=== PATIENT | male | born 1955 | race Caucasian/White ===

== ENCOUNTER 2025-07-20 17:51 | Emergency (ER) | payer MEDICARE, OTHER, SELFPAY ==
--- OUTSIDE RECORDS SUMMARY | 2025-07-12 18:00 | XMS_ITS | Continuity of Care Document ---
Author Organization [facility] Address [address] [place] [address] Phone Care Team Providers Care Edge Stainer Machine Name Role Phone Delmer NEWMAN, [facility], [facility] Unavailable Unavailab le Allergies, Adverse Reactions, Alerts Substance Reaction Status Criticality LISDEXAMFETAMINE DIMESYLATE Active No Information lisinopril Facial swelling(moderate) Active No Information Medications Medication Instructions Dosage Effective Dates (start - stop) Status Comments XARELTO 15 MG TABLET TAKE 1 TABLET BY [place] [facility] EVERY DAY AT NIGHT - Active midodrine 10 mg tablet - Act zoltan allopurinol 300 mg tablet TAKE 1 TABLET BY MOUTH EVERY DAY AT 9AM - Active bumetanide 1 mg tablet TAKE 1 TABLET BY MOUTH EVERY DAY - Active citalopram 40 mg tablet - Active glipizide ER 10 mg tablet, extended release 24 hr - Active losartan 25 mg tablet 1 TABLET BY MOUTH EVERY DAY - Active trazodone 50 mg tablet TAKE 1 TABLET BY MOUTH EVERY EVENING - Active buspirone 7.5 mg tablet take 1 tablet by oral route 2 times every day 7.5 MG - Active quetiapine 50 mg tablet - Active calcitriol 0.25 mcg capsule - Active atorvastatin 80 mg tablet - Active isosorbide mononitrate ER 30 mg tablet,extended release 24 hr - Active Jardiance 10 mg tablet - Act zoltan tamsulosin 0.4 mg capsule - Active buspirone 7.5 mg tablet - Active hydralazine 50 mg tablet take 1 tablet by oral route 2 times every day with food 50 MG - Active albuterol sulfate HFA 90 mcg/actuation aerosol inhaler - Active Januvia 100 mg tablet TAKE 1 TABLET BY M OUTH EVERY MORNING BEFORE MEALS - Active hydralazine 50 mg tablet TAKE 1 TABLET BY MOUTH EVERY 8 HOURS - Active Procedures Procedure Date ICM DEVICE INTERROGAT REMOTE ICD DEVICE INTERROGAT REMOTE PM/ICD REMOTE TECH SERV ICM DEVICE INTERROGAT REMOTE ICM DEVICE INTERROGAT REMOTE Complex e/m visit add on OFFICE/OUTPATIENT VISIT, EST SUBSEQUENT HOSPITAL CARE SUBSEQUENT HOSPITAL CARE SUBSEQUENT HOSPITAL CARE SUBSEQUENT HOSPITAL CARE INITIAL HOSPITAL CARE ICD DEVICE INTERROGAT REMOTE PM/ICD REMOTE TECH SERV ICM DEVICE INTERROGAT REMOTE Advance Directives Directive Yes / No Effective Date File Name No Information Encounters Encounter Description Practice Location Reason(s) For Visit Diagnoses Date Provider Providers Copied on Encounter [facility], [address] [place] [address], [id number] , tel: [phone] [facility] [place] Presence of automatic (implantable) cardiac defibrillator Delmer Albrecht. [address] [place], [place], [id number], . tel:[phone] Referring Provider: [address], [place], [address]. tel:[phone] [facility], [address] [place] [address], [id number] , tel: [phone] [facility] Presence of automatic (implantable) cardiac defibrillator 5 Delmerjeancarlos Albrecht. [address] [place], [place], [id number], . tel:[phone] Referring Provider: Ambrocio Delmer, [address], [place], [address]. tel:[phone] [facility], [address] [place] [address], [id number] , tel: [phone] [facility] No Information 5 Tico Damon. [address], [place], [place], [id number], . tel:[phone] [facility], [address] [place] [address], [id number] , tel: [phone] [facility] Presence of automatic (implantable) cardiac defibrillator 5 Delmer Albrecht. [address], [place], [id number], . tel:[phone] Referring Provider: Ambrocio Dowell, [address], [place], [address]. tel:[phone] [facility], [address] [place] [address], [id number] , tel: [phone] [facility] Presence of automatic (implantable) cardiac defibrillator 5 Delmer Albrecht. [address] [place], [place], [id number], . tel:[phone] Referring Provider: [address], [place], [address]. tel:[phone] ing Provider: Ambrocio Dowell, [address], [place], [address]. tel:[phone] OFFICE/OUTPA TIENT VISIT, EST [facility], [address] [place] [address], [id number] , tel: [phone] [facility] FOLLOW UP (chief complaint) Body mass index [BMI] 28.0-28.9, adultNonrheumatic aortic insufficiencyCHFA F - Paroxysmal atrial fibrillationDiabe ajay mellitusCAD Sep- 5 Delmersage Albrecht. [address], [place], [place], [id number], [place]. tel:[phone] Referring Provider: Amador Mclain, [address] [facility] [address], [place], [address]. tel:[phone] [facility], [address] [place] [address], [id number] , [place] tel: [phone] [facility] [place] No Information 5 [facility] Ambrocio. [address], [place], [place], [id number], [place]. tel:[phone] SUBSEQUENT HOSPITAL CARE [facility], [address] [place] [address], [id number] , [place] tel: [phone] [facility] IP Essential (primary) hypertensionHyper lipidemia, unspecifiedAbnorm al electrocardiogram [ECG] [EKG]Shortness of breathCardiomyopa thy, unspecified 5 [facility] Ambrocio. [address] [place], [place], [id number], [place]. tel:[phone] Referring Provider: Ambrocio Dowell, [address], [place], [address]. tel:[phone] SUBSEQUENT HOSPITAL CARE [facility], [address] [place] [address], [id number] , [place] tel: [phone] [facility] IP Essential (primary) hypertensionHyper lipidemia, unspecifiedShortn ess of breathAthscl heart disease of [place] coronary artery w/o ang pctrsCardiomyopat hy, unspecifiedOther hypotension 5 [facility] Migd[facility]. [address], [place], [place], [id number], [place]. tel:[phone] Referring Provider: Ambrocio Dowell, [facility] [address], [place], [address]. [phone] SUBSEQUENT HOSPITAL CARE [facility], [address] [place] [address], [id number] , tel: [phone] [facility] IP Cardiomyopathy, unspecifiedShortn ess of breathAbnormal electrocardiogram [ECG] [EKG]Athscl heart disease of [place] coronary artery w/o ang pctrsHyperlipidem ia, unspecifiedEssent ial (primary) hypertension 5 Shamim Jermaine. [facility] [address], [place], [place], [id number], . tel:[phone] Referring Provider: Ambrocio Dowell, [facility] [address], [place], [address]. tel:[phone] SUBSEQUENT HOSPITAL CARE [facility], [address] [place] [address], [id number] , tel: [phone] [facility] IP Essential (primary) hypertensionHyper lipidemia, unspecifiedAbnorm al electrocardiogram [ECG] [EKG]Shortness of breathCardiomyopa thy, unspecified 5 Yoon Raines. [facility] [address], [place], [place], [id number], . tel:[phone] Referring Provider: Ambrocio Dowell, [facility] [address], [place], [address]. tel:[phone] INITIAL HOSPITAL CARE [facility], [address] [place] [address], [id number] , tel: [phone] [facility] IP Essential (primary) hypertensionHyper lipidemia, unspecifiedAthscl heart disease of [place] coronary artery w/o ang pctrsAbnormal electrocardiogram [ECG] [EKG]Shortness of breathCardiomyopa thy, unspecified 5 Jai Connors. [address] [place], [place], [address] [place] [address]. tel:[phone] Referring Provider: Ambrocio Dowell, [address], [place], [address]. tel:[phone] [facility], [address] [place] [address], [address] [place] [address] tel: [phone] [facility] Presence of automatic (implantable) cardiac defibrillator 5 Delmer Albrecht. [address] [place], [address] [place] [address]. tel:[phone] Referring Provider: Ambrocio Dowell, [facility] [address], [place], [place], [address] [place] [address]. tel:[phone] ing Provider: Ambrocio Dowell, [place], [address]. tel:[phone] [facility], [address] [place] [address], [address] [place] [address] tel: [phone] [facility] [place] Presence of automatic (implantable) cardiac defibrillator 5 Delmer Albrehct. [address], [place], [address] [place] [address], . tel:[phone] Referring Provider: Ambrocio Dowell, [place], [address]. tel:[phone] ing Provider: Ambrocio Dowell, [facility] [place], [address]. tel:[phone] [facility], [address] [place] [address], [address] [place] [address] tel: [phone] [facility] [place] No Information 5 Delmer Albrecht. [address], [place], [address] [place] [address], . tel:[phone] Family History Family Member Type Diagnosis Age At Onset Mother Problem (finding) Heart disease Brother Problem (finding) Heart disease Father Problem (finding) Stroke Payers Payer name Insurance type Covered libertarian ID Asael childs(s) [facility] [id number] PPO C [id number] [facility] [id number] Social History Type Description Quantity Date Captured Comments Sex Male Smoking Status No Information Chief Complaint And Reason For Visit No Information Reason For Referral Reason For Referral No Information Plan Of Treatment Date Type Action Status Goal Dietary management education , guidance, and counseling completed History Of Present Illness Encounter Date Complaint History Of Prese nt Illness FOLLOW UP Functional Status Date Functional Assessmen t No Information Instructions Date Instruction Additional Infor mation Dietary management e ducation, guidance, and counseling Related to Body mass index [BMI] 28.0-28.9, adult Assessments Type Assessment Date No Information Patient Care Teams Name Effective Dates (start - stop) Status Members No Information
[2025-07-20] VITALS (7 sets, daily range): BP systolic 104–142; BP diastolic 50–100; PULSE 82–98; RESP 12–17; TEMP 36.7; O2SAT 93–100
--- NOTE | ~2025-07-20 | CT_ITS ---
EXAMINATION: CTA pelvis DATE: 07/20/2025 20:37 INDICATION: Right hip pain. Hematoma to the right gluteus maximize. TECHNIQUE: Computed tomographic angiography (CTA) of the chest was performed without and with 100 mL Omnipaque-350 intravenous contrast. Additional 3D reconstructions utilizing coronal maximum intensity projection (MIP) were performed. Automated exposure control and iterative reconstruction technique were employed. The dose-length product was 385.17 mGy-cm. COMPARISON: None FINDINGS: Large intramuscular hematoma in the right gluteus stefania muscle which begins at the level of the cephalad aspect of the right acetabulum which extends 11 cm craniocaudally to the level of the ischial tuberosity. Hematoma measures 13.4 x 5.7 cm in maximal transaxial dimensions. There is a small focus of active contrast extravasation at the anteroinferior aspect of the hematoma best appreciated on series 3, images 85 & 86, coronal series 601, images 83-85 and sagittal series 602, images 16 & 17. The musculature of the pelvis and visualized proximal thighs is otherwise symmetric and normal in appearance. Bladder and visualized portions of bowels are unremarkable. Mild prostatomegaly measuring 4.4 x 3.7 cm. Small fat-containing left inguinal hernia. No free fluid in the pelvis. No pathologically enlarged pelvic or inguinal lymphadenopathy. Scattered atherosclerotic disease throughout the arteries of the pelvis and proximal thighs with no hemodynamically significant stenosis, aneurysm or d issection. 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 Suggestion of possible old healed fracture extending transversely across the sacrum at the level of S4-S5. IMPRESSION: 1. Large right gluteus stefania intramuscular hematoma measuring 13.4 x 11.0 x 5.7 cm with small focus of active contrast extravasation. 2. Small fat-containing left inguinal hernia. 3. L5 spondylolysis with bilateral pars interarticularis defects, 6 mm anterolisthesis on S1 and severe lumbosacral spondylosis. 4. Prostatomegaly. Reviewed, dictated and finalized at location A. NG ASSISTANT IMPRESSION: 1. Large right gluteus stefania intramuscular hematoma measuring 13.4 x 11.0 x 5 .7 cm with small focus of active contrast extravasation. 2. Small fat-containing left inguinal hernia. 3. L5 spondylolysis with bilateral pars interarticularis defects, 6 mm anteroli sthesis on S1 and severe lumbosacral spondylosis. 4. Prostatomegaly.
--- NOTE | 2025-07-20 18:33 | ED_ITS ---
HPI - Extremity Injury (Lower) General Chief Complaint: Extremity Injury, Lower <LATANYA Chambers Last Filed: 07/20/25 23:17> Stated Complaint: Fall, Right Hip pain <LATANYA Chambers Last Filed: 07/20/25 23:17> Time Seen by Provider: 07/20/25 17:54 <LATANYA Chambers Last Filed: 07/20/25 23:17> Source: patient <LATANYA Chambers Last Filed: 07/20/25 23:17> Mode of arrival: EMS <LATANYA Chambers Last Filed: 07/20/25 23:17> Limitations: no limitations <LATANYA Chambers Last Filed: 07/20/25 23:17> History of Present Illness HPI Narrative: Patient is a 69-year-old male who presents the ED via EMS with report of a fall. Patient reports he tripped and fell earlier this afternoon. Fell onto concrete, landed on his R hip. Denied HI/LOC. Was able to get up from the ground by himself but c/o persistent pain in his R hip into the evening at which point EMS was called. Was able to ambulate. Denies numbness. Denies any other areas of pain. Denies neck or back pain. Patient is on xarelto. Hx AFIB <LAATNYA Chambers Last Filed: 07/20/25 23:17> Related Data Allergies/Adverse Reactions: Allergies Allergy/AdvReac Type Severity Reaction Status Date / Time metoprolol (From Lopressor) Allergy Severe Swelling Verified 07/20/25 17:58 of Lip/Tongue/Throat <LATANYA Chambers Last Filed: 07/20/25 23:17> Review of Systems 2 Review of Systems: All systems reviewed & are unremarkable except as noted in HPI. <LATANYA Chambers Last Filed: 07/20/25 23:17> All systems reviewed & are unremarkable except as noted in HPI and below < LATANYA Chambers Last Filed: 07/20/25 23:17> Exam 2 Narrative: GENERAL: Elderly but well appearing, well-nourished, non-toxic, in no acute distress. HEAD: Normocephalic, atraumatic. RESPIRATORY: Airway patent, respirations nonlabored. Clear to auscultation bilaterally, no rales, rhonchi, wheezing. CARDIOVASCULAR: Regular rate and rhythm without murmurs, rubs, or gallops. ABDOMINAL: Soft, nontender, nondistended. Normoactive BS. MUSCULOSKELETAL: Moves all extremities. Large amount of swelling/bruising/hematoma formation to right gluteal region. Diffuse bruising extending into proximal thigh, up to gluteal cleft. Focal tenderness to palpation. Sensation intact throughout right lower extremity. Peripheral pulses intact. No tenderness palpation throughout lumbar midline spine. SKIN: Warm, dry, normal color. NEURO: A&O X3. Speech clear. Cranial nerves II-XII grossly intact. Steady gait. No ataxic movements. PSYCHIATRIC: Appropriate mood and affect. Normal interaction. <LATANYA Chambers Last Filed: 07/20/25 23:17> Course FORESTER [employer]URE/PA Physician Supervision This visit was performed by both a physician and an Advanced Practice Provider. I performed all aspects of the Medical Decision Making as documented. <Antony Masters MD - Last Filed: 07/21/25 03:19> Vital Signs Vital signs: Vital Signs Temperature 36.7 C 07/20/25 17:53 Pulse Rate 90 07/20/25 17:53 Respiratory Rate 16 07/20/25 17:53 Blood Pressure 104/71 07/20/25 17:53 Pulse Oximetry 100 07/20/25 17:53 Oxygen Delivery Room Air 07/20/25 17:53 Temperature 36.7 C 07/20/25 17:53 Pulse Rate 87 07/21/25 01:52 Respiratory Rate 12 07/21/25 01:52 Blood Pressure 111/54 L 07/21/25 01:52 Pulse Oximetry 97 07/21/25 01:52 Oxygen Delivery Room Air 07/20/25 17:53 <Noelle Joshi PA-C - Last Filed: 07/20/25 23:17> Vital Signs Temperature 36.7 C 07/20/25 17:53 Pulse Rate 90 07/20/25 17:53 Respiratory Rate 16 07/20/25 17:53 Blood Pressure 104/71 07/20/25 17:53 Pulse Oximetry 100 07/20/25 17:53 Oxygen Delivery Room Air 07/20/25 17:53 Temperature 36.7 C 07/20/25 17:53 Pulse Rate 87 07/21/25 01:52 Respiratory Rate 12 07/21/25 01:52 Blood Pressure 111/54 L 07/21/25 01:52 Pulse Oximetry 97 07/21/25 01:52 Oxygen Delivery Room Air 07/20/25 17:53 <Antony Masters MD - Last Filed: 07/21/25 03:19> MDM - Extremity Injury (Lower) MDM Narrative Medical decision making narrative: Patient presented to ED status post ground level mechanical fall today, pain to right posterior hip/glute. Vital signs are stable arrival. Patient in no acute distress. Exam notable for large right-sided gluteal hematoma with diffuse bruising. Patient is on anticoagulation. Will obtain imaging to rule out fracture or active extravasation of hematoma. Laboratory studies with hemoglobin 9.6. No records to compare to. CMP with creatinine 1.8. No records to compare to. CTA pelvis was obtained and showing right gluteal intramuscular hematoma with focus of active arterial hemorrhage. No fracture / dislocation. Given patient is currently on anticoagulation with actively bleeding hematoma, may need IR/vascular management. Will require transfer. Repeat H&H approx 3 hours later 9.6 to 9.0. Patient remaining hemodynamically stable at this time. BP stable. Discussed case with Dr. Rose, EDP @ [facility], accepted patient for transfer. Patient is in agreement with plan and need for transfer. <Noelle Joshi PA-C - Last Filed: 07/20/25 23:17> Medical Records Attestation: I reviewed the patient's medical records. <Noelle Joshi PA-C - Last Filed: 07/20/25 23:17> Lab Data Attestation: I reviewed the patient's lab results. <Noelle Joshi PA-C - Last Filed: 07/20/25 23:17> Result diagrams: 07/20/25 22:29 07/20/25 19:26 <Noelle Joshi PA-C - Last Filed: 07/20/25 23:17> Labs: Lab Results 07/20/25 07/20/25 07/20/25 Range/Units 19:26 22:29 22:41 WBC 10.2 H (4.5-10.0) K/mm3 RBC 3.29 L (4.6-6.20) M/mm3 Hgb 9.6 L 9.0 L (14.0-18.0) g/dL Hct 29.9 L 28.2 L (42.0-52.0) % MCV 90.9 (80-100) fl MCH 29.2 (26-34) pg MCHC 32.1 (32-36) g/dl RDW 16.8 H (11.5-14.5) % Plt Count 211 (150-375) k/mm3 MPV 9.9 (7.4-10.4) fl Immature Gran % (Auto) 0.6 H (0-0.5) % Neut % (Auto) 80.9 H (45.5-73.1) % Lymph % (Auto) 8.5 L (18.3-44.2) % [place] % (Auto) 7.0 (2.6-8.5) % Eos % (Auto) 2.5 (0-4.4) % Baso % (Auto) 0.5 (0.2-1.2) % Lymph # (Auto) 0.86 L (0.9-3.2) K/mm3 [place] # (Auto) 0.7 H (0.1-0.6) K/mm3 Eos # (Auto) 0.3 (0-0.3) K/mm3 Baso # (Auto) 0.1 (0.0-0.1) K/mm3 Abs Immat Gran (auto) 0.06 H (0.00-0.031) K/mm3 Absolute Neuts (auto) 8.2 H (1.3-6.7) K/mm3 Absolute Nucleated RBC 0.000 (0.0-0.012) K/mm3 Nucleated RBC % 0.0 (0.0-0.2) % PT 21.3 H (11.1-14.7) Seconds INR 1.9 APTT 33.6 (22.3-36.8) Seconds Sodium 135 L (137-145) mmol/L Potassium 4.8 (3.4-5.0) mmol/L Chloride 105 (98-107) mmol/L Carbon Dioxide 22 (22-30) mmol/L Anion Gap 8 (4-12) mmol/L BUN 76 H (9-20) mg/dL Creatinine 1.80 H (0.7-1.3) mg/dL Estim Creat Clear Calc 32 ml/min Estimated GFR 37 L (59 - ) Glucose 195 H (65-110) mg/dL Calcium 9.8 (8.4-10.2) mg/dL Total Bilirubin 0.5 (0.2-1.3) mg/dL AST 28 (17-59) U/L ALT 29 (6-50) U/L Alkaline Phosphatase 91 (38-126) U/L Total Protein 6.4 (6.3-8.2) g/dL Albumin 3.6 (3.5-5.1) g/dL Blood Type A Negative Antibody Screen Negative <Noelle Joshi PA-C - Last Filed: 07/20/25 23:17> Lab Results 07/20/25 07/20/25 07/20/25 Range/Units 19:26 22:29 22:41 WBC 10.2 H (4.5-10.0) K/mm3 RBC 3.29 L (4.6-6.20) M/mm3 Hgb 9.6 L 9.0 L (14.0-18.0) g/dL Hct 29.9 L 28.2 L (42.0-52.0) % MCV 90.9 (80-100) fl MCH 29.2 (26-34) pg MCHC 32.1 (32-36) g/dl RDW 16.8 H (11.5-14.5) % Plt Count 211 (150-375) k/mm3 MPV 9.9 (7.4-10.4) fl Immature Gran % (Auto) 0.6 H (0-0.5) % Neut % (Auto) 80.9 H (45.5-73.1) % Lymph % (Auto) 8.5 L (18.3-44.2) % [place] % (Auto) 7.0 (2.6-8.5) % Eos % (Auto) 2.5 (0-4.4) % Baso % (Auto) 0.5 (0.2-1.2) % Lymph # (Auto) 0.86 L (0.9-3.2) K/mm3 [place] # (Auto) 0.7 H (0.1-0.6) K/mm3 Eos # (Auto) 0.3 (0-0.3) K/mm3 Baso # (Auto) 0.1 (0.0-0.1) K/mm3 Abs Immat Gran (auto) 0.06 H (0.00-0.031) K/mm3 Absolute Neuts (auto) 8.2 H (1.3-6.7) K/mm3 Absolute Nucleated RBC 0.000 (0.0-0.012) K/mm3 Nucleated RBC % 0.0 (0.0-0.2) % PT 21.3 H (11.1-14.7) Seconds INR 1.9 APTT 33.6 (22.3-36.8) Seconds Sodium 135 L (137-145) mmol/L Potassium 4.8 (3.4-5.0) mmol/L Chloride 105 (98-107) mmol/L Carbon Dioxide 22 (22-30) mmol/L Anion Gap 8 (4-12) mmol/L BUN 76 H (9-20) mg/dL Creatinine 1.80 H (0.7-1.3) mg/dL Estim Creat Clear Calc 32 ml/min Estimated GFR 37 L (59 - ) Glucose 195 H (65-110) mg/dL Calcium 9.8 (8.4-10.2) mg/dL Total Bilirubin 0.5 (0.2-1.3) mg/dL AST 28 (17-59) U/L ALT 29 (6-50) U/L Alkaline Phosphatase 91 (38-126) U/L Total Protein 6.4 (6.3-8.2) g/dL Albumin 3.6 (3.5-5.1) g/dL Blood Type A Negative Antibody Screen Negative <Antony Masters MD - Last Filed: 07/21/25 03:19> Imaging Data Attestation: I personally reviewed and interpreted this imaging study as follows: < Noelle Joshi PA-C - Last Filed: 07/20/25 23:17> Radiologist's impression: STAT RAD CTA pelvis: Impression: Right gluteal intramuscular hematoma with focus of active arterial hemorrhage. No evidence of acute fracture or dislocation. <Noelle Joshi PA-C - Last Filed: 07/20/25 23:17> Critical Care Time Critical Care Time Critical Care Time: Yes <Antony Masters MD - Last Filed: 07/21/25 03:19> Total Critical Care Time: 75 <Antony Masters MD - Last Filed: 07/21/25 03:19> Discharge Plan Discharge Clinical Impression: Extravasation of blood, Chronic anticoagulation Traumatic hematoma of buttock Qualifiers: Encounter type: initial encounter Qualified Code(s): S30.0XXA - Contusion of lower back and pelvis, initial encounter <Noelle Joshi PA-C - Last Filed: 07/20/25 23:17> Patient Disposition: Acute Care Hospital <Noelle Joshi PA-C - Last Filed: 07/20/25 23:17> Condition: Stable <Noelle Joshi PA-C - Last Filed: 07/20/25 23:17> Patient Language: Zimbabwean <Noelle Joshi PA-C - Last Filed: 07/20/25 23:17> Follow-up/Referrals: PHYSICIAN NOT ON STAFF,NONSTAFF [Primary Care Provider] <LATANYA Chambers Last Filed: 07/20/25 23:17>
--- OUTSIDE RECORDS SUMMARY | 2025-07-20 18:50 | XMS_ITS | Encounter Summary ---
Author Organization [facility] Address [address] [place] [address] Phone Care Team Providers Care Wood Cabinetmaker Name Role Phone Amador Mclain Primary Care Provider [phone] Encounter Details Date Type Department Care Team (Late st Contact Info) Description 03/13/2025 Nursing Facility [facility] [address] [place] [address] [phone] Bella Garcia, GUILLE, PATIENT FINANCIAL SERVICES MANAGER [address] [place] [address] Social History Tobacco Use Types Packs/Day Years Used Date Smoking Tobacco: Never Assessed Sex and Gender Information Value Date Recorded Sex Assigned at Not on file Legal Sex Male 7:30 PM CDT Gender Identity Not on file Sexual Orientation Not on file documented as of this encounter Progress Notes * Bella Garcia, GUILLE, PATIENT FINANCIAL SERVICES MANAGER - 03/13/2025 11:59 PM CDT [facility] PROGRESS NOTE Rolando Viera is a 69 y.o. male at [facility] for rehabilitation. Subjective: Interval History: I am seeing this resident for routine follow up encounter. Review of Systems: A 14 point comprehensive review of systems was negative except what is documented in interval history above. Objective: Exam: General: well developed well nourished, alert, oriented and in no acute distress Skin: normal coloration and turgor, no rashes HEENT: normocephalic, atraumatic. Pupils equal, round and reactive to light. Extraocular movements intact. Oronasopharynx pink and moist, no lesion or exudate. Neck: Supple. No JVD, lymphadenopathy thyromegaly or carotid bruits auscultated CVS: RRR, S1/S2 normal, no murmurs, gallops or rubs Chest: clear to auscultation, no wheezes, rales or rhonchi, symmetric air entry and normal respiratory effort Abdominal: soft, nontender, nondistended. Positive Bowel sounds, no organomegaly appreciated Extremities: Rt upper arm Picc line, otherwise, no edema, no clubbing or cyanosis Neuro: alert and orient x 2-3. Moves all extremities well. No neurological deficits noted. Gait nottested Lab Results: none Imaging: none Assessment/Plan: Bacteremia due to the ED. Faecalis with Sepsis Continue to receive IV ampicillin and Rocephin via right upper arm PICC line until 03/24/2025 Generalized weakness with deconditioning Will continue therapy 5 days a week as ordered Diabetes type 2 Blood sugars are currently stable, continue glipizide, Lantus, and sliding scale Hypertension/hyperlipidemia BP currently stable, continue antihypertensives and statin Chronic diastolic heart failure Currently not in exacerbation, continue Bumex, Jardiance, as Anxiety and depression Continue home citalopram, buspirone, trazodone Will consult child psychometrist to help manage medication Right knee pain Has upcoming orthopedic surgery surgery appointment CKD stage IV Follow labs BPH Continue Flomax Chronic atrial fibrillation Currently rate controlled, continue Xarelto and metoprolol VTE Prophylaxis: activity By: Bella Garcia APRN, CNP, 03/14/2025 2:02 AM CDT documented in this encounter Plan of Treatment Not on file documented as of this encounter Visit Diagnoses Not on filedocumented in this encounter Care Teams Wood Cabinetmaker Relationship Specialty [place] [address] [place] [address] PCP - General Family Medicine 04/08/25 documented as of this encounter
--- OUTSIDE RECORDS SUMMARY | 2025-07-20 18:50 | XMS_ITS | Encounter Summary ---
Author Organization [facility] Address [address] [place] [address] Phone Care Team Providers Care Facility Manager Name Role Phone Amador Mclain DO Primary Care Provider [phone] Encounter Details Date Type Department Care Team (Late st Contact Info) Description 03/14/2025 Nursing Facility [facility] [address] [place] [phone] Marielle Haney MD [address] [place] [address] Social History Tobacco Use Types Packs/Day Years Used Date Smoking Tobacco: Never Assessed Sex and Gender Information Value Date Recorded Sex Assigned at Not on file Legal Sex Male 7:30 PM CDT Gender Identity Not on file Sexual Orientation Not on file documented as of this encounter Plan of Treatment Not on file documented as of this encounter Visit Diagnoses Not on filedocumented in this encounter Care Teams Facility Manager Relationship Specialty [place] [address] [place] [address] PCP - General Family Medicine 04/08/25 documented as of this encounter
--- OUTSIDE RECORDS SUMMARY | 2025-07-20 18:50 | XMS_ITS | Encounter Summary ---
Author Organization [facility] Address [address] [place] [address] Phone Care Team Providers Care Purchasing Manager/Sales Name Role Phone Amador Mclain Primary Care Provider [phone] Encounter Details Date Type Department Care Team (Late st Contact Info) Description 03/17/2025 Nursing Facility [facility] [address] [place] [phone] Bella Garcia, GUILLE, TELEVISION TUBE INSPECTOR [address] [place] [address] Social History Tobacco Use Types Packs/Day Years Used Date Smoking Tobacco: Never Assessed Sex and Gender Information Value Date Recorded Sex Assigned at Not on file Legal Sex Male 7:30 PM CDT Gender Identity Not on file Sexual Orientation Not on file documented as of this encounter Progress Notes * Bella Garcia, GUILLE, TELEVISION TUBE INSPECTOR - 03/17/2025 11:59 PM CDT [facility] PROGRESS NOTE Rolando Viera is a 69 y.o. male at [facility] for rehabilitation. Subjective: Interval History: I [...] Positive Bowel sounds, no organomegaly appreciated Extremities: no edema, no clubbing or cyanosis Neuro: alert and orient x 3. Moves all extremities well. No neurological deficits noted. Gait not tested Lab Results: none Imaging: none Assessment/Plan: Bacteremia [...] Continue home citalopram, buspirone, trazodone Will consult psychiatric clinical nurse specialist to help manage medication Right knee pain Has upcoming orthopedic surgery surgery appointment CKD stage IV Follow labs BPH Continue Flomax Chronic atrial fibrillation Currently rate controlled, continue Xarelto and metoprolol VTE Prophylaxis: activity By: Bella Garcia APRN, CNP, 03/18/2025 6:40 AM CDT documented in this encounter Plan of Treatment Not on file documented as of this encounter Visit Diagnoses Not on filedocumented in this encounter Care Teams Purchasing Manager/Sales Relationship Specialty [place] [address] [place] [address] PCP - General Family Medicine 04/08/25 documented as of this encounter
--- OUTSIDE RECORDS SUMMARY | 2025-07-20 18:50 | XMS_ITS | Encounter Summary ---
Author Organization [facility] Address [address] [place] [address] Phone Care Team Providers Care Cartoon Artist Name Role Phone Amador Mclain DO Primary Care Provider [phone] Encounter Details Date Type Department Care Team (Late st Contact Info) Description 03/15/2025 Nursing Facility [facility] [address] [place] [phone] Marielle Haney MD [address] [place] [address] Social History Tobacco Use Types Packs/Day Years [...] on filedocumented in this encounter Care Teams Cartoon Artist Relationship Specialty [place] [address] [place] [address] PCP - General Family Medicine 04/08/25 documented as of this encounter
--- OUTSIDE RECORDS SUMMARY | 2025-07-20 18:50 | XMS_ITS | Encounter Summary ---
Author Organization [facility] Address [address] [place] [address] Phone Care Team Providers Care Inventory Control Coordinator Name Role Phone ChemoNagitikasonny Taveras DO Primary Care Provider [phone] Encounter Details Date Type Department Care Team (Late st Contact Info) Description 03/15/2025 Telephone [facility] Int[facility] Care [address] [place] [phone] Marielle Haney MD [address] [place] [address] Social History Tobacco Use Types Packs/Day Years Used Date Smoking Tobacco: Never Assessed Sex and Gender Information Value Date Recorded Sex Assigned at Not on file Legal Sex Male 7:30 PM CDT Gender Identity Not on file Sexual Orientation Not on file documented as of this encounter Plan of Treatment Not on file documented as of this encounter Procedures Procedure Name Priority Date/Time Associated Diagnosis Comments CULTURE, ANAEROBIC WITH CULTURE, AEROBIC Routine 03/15/2025 5:30 PM CDT Effusion of left knee BODY FLUID, TOTAL PROTEIN Routine 03/15/2025 5:30 PM CDT Effusion of left knee CULTURE, ANAEROBIC Routine 03/15/2025 5: 30 PM CDT Effusion of left knee CULTURE, AEROBIC ONLY Routine 03/15/2025 5:30 PM CDT Effusion of left knee documented in this encounter Results * BODY FLUID CELL COUNT W/ DIFFERENTIAL (03/15/2025 5:30 PM CDT) FLUID TYPE Synovial, specify location 03/15/2025 6:10 PM CDT [facility] Comment:right knee CLARITY Slightly Cloudy 03/15/2025 6:10 PM CDT [facility] COLOR Slightly Bloody 03/15/2025 6:10 PM CDT [facility] VOLUME 25.0 mLs 03/15/2025 6:10 PM CDT [facility] FLUID RBC COUNT 20,000 /mm(3) 03/15/2025 6:10 PM CDT [facility] FLUID TOTAL NUCLEATED CELLS COUNT 10,760 /mm(3) 03/15/2025 6:10 PM CDT [facility] Other [place] STRUCTURE / Unknown Non-Phlebotomy Collection / Unknown 03/15/2025 5:30 PM CDT 03/15/2025 6:08 PM CDT Narrative [facility] - 03/15/2025 6:10 PM CDT The reference range has not been established for this body fluid. The test result must be integrated into the clinical context for interpretation us Marielle Haney MD BODY FLUIDS & STOOLS ORDERABLE S Final Result [facility] [address] [place] [address] * CULTURE, AEROBIC ONLY (03/15/2025 5:30 PM CDT) CULTURE RESULTS No growth final 03/19/2025 6:22 PM CDT [facility] Culture DRAINAGE FLUID SPECIMEN / Unknown Non-Phlebotomy Collection / Unknown 03/15/2025 5:30 PM CDT 03/15/2025 5:56 PM CDT us Marielle Haney MD MICROBIOLOGY - GENERAL ORDERAB LES Final Result [facility] [address] [place] [address], [place] * CULTURE, ANAEROBIC (03/15/2025 5:30 PM CDT) CULTURE RESULTS NO ANAEROBES ISOLATED 03/22/2025 10:39 AM CDT [facility] Culture SYNOVIAL FLUID / Unknown Non-Phlebotomy Collection / Unknown 03/15/2025 5:30 PM CDT 03/15/2025 5:56 PM CDT us Marielle Haney MD MICROBIOLOGY - GENERAL ORDERAB LES Final Result [facility] [address] [place] [address], [place] * BODY FLUID, TOTAL PROTEIN (03/15/2025 5:30 PM CDT) PROTEIN BODY FLUID 3.5 g/dL 03/16/2025 3:23 PM CDT [facility] Comment:A reference range fo r this test has not been established by the [facility] laboratory system as a well-accepted reference range has not been established/published. Other analytical performance, such as accuracy, precision, measurement range, reportable range, and matrix compatibility, have been evaluated and validated by this laboratory. The provider must consider the results in conjunction with other laboratory and clinical data, such as the patient's corresponding serum level of the analyte, and the patient's presenting clinical history and physical exam. Consultation with the medical secretary teacher of the laboratory should be considered, as needed. Although the test has not been approved by the U.S. Food and Drug Administration, its approval is not required for clinical utility. This test should not be used alone for clinical diagnoses or patient treatment. FLUID SOURCE Synovial, specify location 03/16/2025 3:23 PM CDT [facility] Other Non-Phlebotomy Collection / Unknown 03/15/2025 5:30 PM CDT 03/15/2025 5:56 PM CDT us Marielle Haney MD BODY FLUIDS & STOOLS ORDERABLE S Final Result [facility] [address] [place] [address], [facility] [address] [place] [address] documented in this encounter Visit Diagnoses Diagnosis Effusion of left knee- Primary Effusion of lower leg joint documented in this encounter Care Teams Inventory Control Coordinator Relationship Specialty [place] [address] [place] [address] PCP - General Family Medicine 04/08/25 documented as of this encounter
--- OUTSIDE RECORDS SUMMARY | 2025-07-20 18:50 | XMS_ITS | Encounter Summary ---
Author Organization [facility] Address [address] [place] [address] Phone Care Team Providers Care Director Of Staff Development Name Role Phone Amador Mclain Primary Care Provider [phone] Encounter Details Date Type Department Care Team (Late st Contact Info) Description 03/10/2025 Nursing Facility [facility] [address] [place] [phone] Bella Garcia, GUILLE, MICROBIOLOGY SUPERVISOR [address] [place] [address] Social History Tobacco Use Types Packs/Day Years Used Date Smoking Tobacco: Never Assessed Sex and Gender Information Value Date Recorded Sex Assigned at Not on file Legal Sex Male 7:30 PM CDT Gender Identity Not on file Sexual Orientation Not on file documented as of this encounter Progress Notes * Bella Garcia, GUILLE, MICROBIOLOGY SUPERVISOR - 03/10/2025 2:49 PM CDT [facility] PROGRESS NOTE Rolando Viera is a 69 y.o. male at [facility] for rehabilitation. Patient is newly admitted for sepsis with bacteremia due to ED faecalis. Admitted to receive IV ampicillin and Rocephin until March 24, 2025. Also admitted to continue therapy for generalized weaknessand deconditioning. Subjective: Interval History: I am seeing this [...] Positive Bowel sounds, no organomegaly appreciated Extremities: Right upper arm PICC line no edema, no clubbing or cyanosis Neuro: alert and orient x 3. Moves all extremities well. No neurological deficits noted. Gait not tested Lab Results: None Imaging: None Assessment/Plan: Bacteremia due to the ED. Faecalis [...] home citalopram, buspirone, trazodone Will consult psychiatric social worker supervisor to help manage medication Right knee pain Has upcoming orthopedic surgery surgery appointment CKD stage IV Follow labs BPH Continue Flomax Chronic atrial fibrillation Currently rate controlled, continue Xarelto and metoprolol VTE Prophylaxis: Patient Already on Oral Anticoagulation By: Bella Garcia APRN, CNP, 03/10/2025 2:49 PM CDT documented in this encounter Plan of Treatment Not on file documented as of this encounter Visit Diagnoses Not on filedocumented in this encounter Care Teams Director Of Staff Development Relationship Specialty [place] [address] [place] [address] PCP - General Family Medicine 04/08/25 documented as of this encounter
--- OUTSIDE RECORDS SUMMARY | 2025-07-20 18:51 | XMS_ITS | Clinical Summary ---
Author Organization [facility] Address [address] [place] [address] Care Team Providers Care Implementation Consultant Name Role Phone Amador Mclain DO Primary Care Provider + Arlyn Townsend MD Unavailable [phone] Allergies Active Allergy Reactions Criticality Noted Date Comments Lisinopril High Medications tamsulosin (FLOMAX) 0.4 mg extended release capsule Take 1 capsule (0.4 mg total) by mouth daily Active hydrOXYzine (ATARAX) 25 mg tablet Take 1 tablet (25 mg total) by mouth 3 (three) times a day as needed for itching Active ferrous sulfate 325 mg (65 mg of elemental iron) tabletIndicatio ns:Iron Deficiency Anemia Take 1 tablet (325 mg total) by mouth 2 (two) times a day Active aspirin 81 mg chewable tablet Take 1 tablet (81 mg total) by mouth daily Active citalopram (CeleXA) 40 mg tablet Take 1 tablet (40 mg total) by mouth daily Active allopurinoL (ZYLOPRIM) 300 mg tablet Take 1 tablet (300 mg total) by mouth daily Active albuterol HFA (PROVENTIL HFA,VENTOLIN HFA,PROAIR HFA) 90 mcg/actuation inhaler Inhale 2 puffs every 6 (six) hours as needed for wheezing Active calcitRIOL (ROCALTROL) 0.25 mcg capsule Take 1 capsule (0.25 mcg total) by mouth daily 30 capsule 2 Active isosorbide mononitrate ER (IMDUR) 30 mg 24 hr tablet Take 1 tablet (30 mg total) by mouth daily 3 Active docusate sodium (DOK) 100 mg tabletIndicatio ns:constipation Take 1 tablet (100 mg total) by mouth nightly Active atorvastatin (LIPITOR) 80 mg tablet Take 1 tablet (80 mg total) by mouth daily 90 tablet 4 Active rivaroxaban (XARELTO) 15 mg tablet Take 1 tablet (15 mg total) by mouth daily with breakfast Active losartan (COZAAR) 25 mg tablet Take 1 tablet (25 mg total) by mouth daily Active bumetanide (BUMEX) 1 mg tablet Take 1 tablet (1 mg total) by mouth daily Active glipiZIDE XL (GLUCOTROL XL) 10 mg 24 hr tablet Take 2 tablets (20 mg total) by mouth daily 5 Active metoprolol XL (TOPROL-XL) 25 mg extended release tablet Take 1 tablet (25 mg total) by mouth daily 100 tablet 3 5 Active insulin glargine 100 unit/mL (3 mL) pen for injection Inject 20 Units under the skin nightly 15 mL 4 5 Active traZODone (DESYREL) 100 mg tablet Take 1.5 tablets (150 mg total) by mouth nightly 150 tablet 3 5 Active acetaminophen-c odeine (TYLENOL with CODEINE #3) 300-30 mg per tabletIndicatio ns:Knee effusion, right,Arthralgi a of right knee Take 1 tablet by mouth every 6 (six) hours as needed for pain PRN breakthrough pain. Take with food. Collaborating physician Corey Ramsay MD 15 tablet 5 Active acetaminophen (TYLENOL) 325 mg tablet Take 2 tablets (650 mg total) by mouth every 4 (four) hours as needed for pain Active diclofenac sodium (VOLTAREN) 1 % gelIndications: Osteoarthritis of the Knee,Right Apply 2 g topically 4 (four) times a day Active omeprazole 20 mg tablet,delayed release (DR/EC) Take 2 tablets (40 mg total) by mouth daily Active lidocaine (LIDODERM) 5 % Place 1 patch on the skin daily Remove & discard patch within 12 hours or as directed by MD. Active linaGLIPtin (TRADJENTA) 5 mg tabletIndicatio ns:type 2 diabetes mellitus Take 1 tablet (5 mg total) by mouth daily Active polyethylene glycol (MIRALAX) 17 gram packetIndicatio ns:constipation Take 1 packet (17 g total) by mouth daily Active ondansetron (ZOFRAN) 4 mg tablet Take 1 tablet (4 mg total) by mouth every 8 (eight) hours as needed for nausea or vomiting Active busPIRone (BUSPAR) 10 mg tabletIndicatio ns:Generalized Anxiety Disorder Take 1 tablet (10 mg total) by mouth 2 (two) times a day 200 tablet 3 5 026 Active QUEtiapine (SEROquel) 50 mg tablet Take 1 tablet (50 mg total) by mouth nightly 30 tablet 5 Active sodium chloride (OCEAN) 0.65 % nasal spray Administer 1 spray into each nostril as needed for congestion 15 mL 3 5 026 Active Active Problems Problem Noted Date Diagnosed Date Chronic kidney disease (CKD), stage IV (severe) 04/18/2025 Chest pain 03/18/2025 Elevated brain natriuretic peptide (BNP) level 0 03/18/2025 Knee effusion, right 02/21/2025 Arthralgia of right knee 02/21/2025 Pulmonary hypertension 02/19/2025 Chronic combined systolic and diastolic heart fa ilure 02/19/2025 Type 2 diabetes mellitus with circulatory disord er 02/19/2025 Type 2 diabetes mellitus wit h stage 4 chronic kidney disease 02/19/2025 Type 2 diabetes mellitus with hyperlipidemia Type 2 diabetes mellitus with peripheral vascula r disease 02/19/2025 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 02/19/[address] nodules [address] CT 02/19/2025 Bacteremia due to Enterococcus 02/19/2025 Presence of heart assist device 02/19/2025 Type 2 diabetes mellitus with hyperglycemia 01/27 Severe episode of recurrent major depressive disorder, without psychotic features 02/19/2025 GEREMIAS (generalized anxiety disorder) 02/19/2025 Insomnia 02/19/2025 Generalized weakness 02/06/2025 Hypertensive heart and kidne y disease with HF and with CKD stage IV 10/18/2023 Occlusion and stenosis of unspecified carotid ar paramjit 01/29/2022 Dyspnea 01/17/2022 Anemia, unspecified 05/16/2013 Paroxysmal atrial fibrillation 12/21/2012 Hyperlipidemia 10/19/2012 Atherosclerotic heart diseas e of [place] coronary artery without angina pectoris 08/28/1959 Overview (01/29/2022): CABG;2 SVG OPEN, EDEL ATRETIC FOR COMPLTE 13 Resolved Problems Problem Noted Date Diagnosed Date Resolved Date Hypotension 04/18/2025 04/18/2025 Acute respiratory failure with hypoxia 04/06/2025 04/18/2025 Acute systolic congestive heart failure 03/18/2025 04/18/2025 Rhinovirus infection 02/19/2025 025 Enterovirus infection 02/19/20252024 Atrial fibrillation with rap id ventricular response 02/06/2025 02/19/2025 Acute renal failure (ARF) 10/18/2023 Acute on chronic congestive heart failure, unspecified heart failure type 10/15/2023 Encounters Date Type Department Care Team Description 07/08/2025 9:40 AM [employer]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 Medicine ENT [address] [facility] [address] [place] [address] Last, Daria Horn MD Epistaxis (Primary Dx) from Last 3 Months Surgical History Surgery Date Site/Laterality Comments OTHER SURGICAL HISTORY CHF: Triple Bypass APPENDECTOMY Appendectomy OTHER SURGICAL HISTORY R&L Toe surgery OTHER SURGICAL HISTORY Wide local excision of R. hand, R. shoulder, scalp and left arm skin lesions with complex closure. Medical History Medical History Date Comments Hx Other Medical CHF Cardiovascular disease Coronary artery disease Hypertension Hypertension Diabetes mellitus Diabetes Arthritis Arthritis Family History Medical History Relation Name Comments Diabetes Brother 1 Diabetes mellit us; Hypertension Brother 2 Hypertension; Stroke Father Stroke; Diabetes Mother Diabetes mellit us; Heart disease Mother Heart disease; Hypertension Mother Hypertension; Diabetes Sister 1 Diabetes mellit us; Hypertension Sister 2 Hypertension; Relation Name Status Comments Brother 1 Brother 2 Father Mother Sister 1 Sister 2 Social History Tobacco Use Types Packs/Day Years Used Date Smoking Tobacco: Never Smokeless Tobacco: Never Alcohol Use Standard Drinks/Week Comments Never 0 (1 standard drink = 0.6 oz pur e alcohol) Social Connection and Isolation Panel Answer Date Recorded In a typical week, how many times do you talk on the phone with family, friends, or neighbors? More than three times a week 03/20/2025 How often do you get togethe r with friends or relatives? Twice a week 03/20/2025 How often do you attend chur ch or christian services? Never 03/20/2025 Do you belong to any clubs o r organizations such as congregational groups, unions, fraternal or athletic groups, or school groups? No 03/20/2025 How often do you attend meet ings of the clubs or organizations you belong to? Never 03/20/2025 Are you , , di vorced, , never , or living with a partner? 03/20/2025 Overall Financial Resource Strain (CARDIA) Answe r Date Recorded How hard is it for you to pa y for the very basics like food, housing, medical care, and heating? Hard 03/20/2025 PHQ-2 Answer Date Recorded PHQ-2 Total Score 6 02/07/2025 PRAPARE - Transportation Answer Date Re corded In the past 12 months, has l ack of transportation kept you from medical appointments or from getting medications? No 02/26 In the past 12 months, has l ack of transportation kept you from meetings, work, or from getting things needed for daily living? No 03/20/2025 Housing Stability Vital Sign Answer Nikolai e Recorded In the last 12 months, was t here a time when you were not able to pay the mortgage or rent on time? No 10/16/2023 Number of Places Lived in the Last Year Not on f ile 10/16/2023 In the last 12 months, was t here a time when you did not have a steady place to sleep or slept in a senior care (including now)? No 10/16/2023 PHQ-9 Answer Date Recorded PHQ-9 Total Score 20 02/07/2025 Housing Stability Vital Sign Answer Nikolai e Recorded In the last 12 months, was t here a time when you were not able to pay the mortgage or rent on time? No 03/20/2025 In the past 12 months, how m any times have you moved where you were living? 0 03/20/2025 At any time in the past [address] [facility], were you homeless or living in a senior care (including now)? No 03/20/2025 Social Connection and Isolation Panel Answer Date Recorded In a typical week, how many times do you talk on the phone with family, friends, or neighbors? Three times a week 04/07/2025 How often do you get togethe r with friends or relatives? Three times a week 04/07/2025 How often do you attend chur ch or christian services? Never 04/07/2025 Do you belong to any clubs o r organizations such as congregational groups, unions, fraternal or athletic groups, or school groups? No 04/07/2025 How often do you attend meet ings of the clubs or organizations you belong to? Never 04/07/2025 Are you , , di vorced, , never , or living with a partner? 04/07/2025 AUDIT-C Answer Date Recorded Q1: How often do you have a drink containing alcohol? Never 04/07/2025 Q2: How many drinks containi ng alcohol do you have on a typical day when you are drinking? Patient does not drink Q3: How often do you have si x or more drinks on one occasion? Never 04/07/2025 Overall Financial Resource Strain (CARDIA) Answe r Date Recorded How hard is it for you to pa y for the very basics like food, housing, medical care, and heating? Somewhat hard 04/07/2025 Hunger Vital Sign Answer Date Recorded Within the past 12 months, y ou worried that your food would run out before you got the money to buy more. Often true 04/07/20 25 Within the past 12 months, t he food you bought just didn't last and you didn't have money to get more. Often true 04/07/2025 PRAPARE - Transportation Answer Date Re corded In the past 12 months, has l ack of transportation kept you from medical appointments or from getting medications? No 03/28 In the past 12 months, has l ack of transportation kept you from meetings, work, or from getting things needed for daily living? No 04/07/2025 Housing Stability Vital Sign Answer Nikolai e Recorded In the last 12 months, was t here a time when you were not able to pay the mortgage or rent on time? No 04/07/2025 In the past 12 months, how m any times have you moved where you were living? 0 04/07/2025 At any time in the past [address] [facility], were you homeless or living in a senior care (including now)? No 04/07/2025 [facility] Utilities Answer Date Recorded In the past 12 months has th e electric, gas, oil, or water company threatened to shut off services in your home? Yes 04/07/2025 Personal Safety Answer Date Recorded Have you ever been in or are you currently in a harmful physical or emotional relationship or is someone making you feel afraid or unsafe? Denies 04/06/2025 Sex and Gender Information Value Date Recorded Sex Assigned at Not on file Legal Sex Male 8:06 PM [employer] Gender Identity Not on file Sexual Orientation Not on file Last Filed Vital Signs Vital Sign Reading Time Taken Comments Blood Pressure 101/79 04/10/2025 11:52 AM CDT Pulse 73 04/10/2025 11:52 AM CDT Temperature 36.4 C (97.5 F) 04/10/2025 11:52 AM CDT Respiratory Rate 20 04/10/2025 11:52 AM CDT Oxygen Saturation 98% 04/10/2025 11:52 AM CDT Inhaled Oxygen Concentration - - Weight 81.2 kg (179 lb) 07/08/2025 9:46 AM [employer] IN[employer] Height 170.2 cm (5' 7) 07/08/2025 9:46 AM [employer] INST[employer]ER Body Mass Index 28.04 07/08/2025 9:46 AM [employer] INST[employer]ER Plan of Treatment Health Maintenance Due Date Last Done Comments Albumin Creatinine Ratio, Urine 1955 Colon Cancer Screening-Colonoscopy 1955 Hepatitis C Screening 1955 Dilated Eye Exam 1953 Foot Exam 1953 DTaP/Tdap/Td Vaccine (1 - Tdap) 1964 Hepatitis B Screening 1971 Pneumococcal vaccine 65+ (1 of 2 - PCV) 1972 Zoster Vaccine (1 of 2) 2003 Well Visit 65+ 2018 Covid-19 Vaccine (4 - 2024-2 6 season) 2025 01/02/2022, 07/06/2021, 11/09/2020 Influenza Vaccine (#1) 2025 06/27/2021, 2019 Hemoglobin A1C 10/09/2025 04/08/2025, 01/26, 10/16/2023, Additional history exists Depression Screening 02/05/2026 02/05/2025, 02/06/20 25 Lipid Panel 04/09/2026 04/09/2025, 12/27, 10/18/2013, Additional history exists Fall Risk Assessment 04/10/2026 04/10/2025 eGFR 04/10/2026 04/10/2025, 03/28, 04/08/2025, Additional history exists Procedures Procedure Name Priority Date/Time Associated Diagnosis Comments EGFR Routine 04/10/2025 4:55 AM CDT LIPID PANEL Routine 04/09/2025 2:56 PM CDT HEMOGLOBIN A1C Routine 04/08/2025 3:48 AM CDT from Last 3 Months or Most Recently Relevant to Health Maintenance Results * (ABNORMAL) eGFR (04/10/2025 4:55 AM CDT) eGFR 33(L) >=60 mL/min/1. 73 m2 Comment: Interpretive Data Reference Interval Normal >/= 90 mL/min/1.73m2 Mildly decreased* 60 - 89 mL/min/1.73m2 Mildly to moderately decreased 45 - 59 mL/min/1.73m2 Moderately to severely decreased 30 - 44 mL/min/1.73m2 Severely decreased 15 - 29 mL/min/1.73m2 Kidney Failure < 15 mL/min/1.73m2 *Relative to young adult level Estimated glomerular filtration rate is determined by the 2020 CKD-EPI equation recommended by the National Kidney Foundation (A Unifying Approach to GFR Estimation: Recommendations of the NKF-ASK Task Force on Reassessing the Inclusion of Race in Diagnosing Kidney Disease, JASN 2020). The CKD-EPI equation should not be used for patients with unstable renal function and has not been validated in children and those over 70. Current interpretive data was last reviewed 2021. Blood 04/10/2025 4:55 AM CDT 04/10/2025 5:41 AM CDT us Puma Mclain DO LAB BLOOD ORDERABLES Final Result JEFRY ERAZO [address] Department [place] [address] * Lipid panel (04/09/2025 2:56 PM CDT) Cholesterol 136 30 - 199 mg/dL Comment: Interpretive Data Ages < or = 19 years Acceptable: <170 mg/dL Borderline high: 170-199 mg/dL High: >or= 200 mg/dL Ages > or = 20 years Desirable: <200 mg/dL Borderline high: 200-239 mg/dL High: >or= 240 mg/dL Literature References: 1. Expert Panel on Integrated Guidelines for Cardiovascular Health and Risk Reduction in Children and Adolescents. Pediatrics 2011;128:S213 2. NCEP Expert Panel. Circulation 2004;110:227 Current Interpretive Data was last revised on 2018. Triglycerides 125 <=149 mg/dL JEFRY ERAZO Comment: Interpretive Data Ages < or = 9 years Acceptable: <75 mg/dL Borderline high: 75-99 mg/dL High: >or= 100 mg/dL Ages 10 to 20 years Acceptable: <90 mg/dL Borderline high: 90-129 mg/dL High: >or= 130 mg/dL Ages > or = 20 years Desirable: <150 mg/dL Borderline high: 150-199 mg/dL High: 200-499 mg/dL Very high: >or= 499 mg/dL Literature References: 1. Expert Panel on Integrated Guidelines for Cardiovascular Health and Risk Reduction in Children and Adolescents. Pediatrics 2011;128:S213 2. NCEP Expert Panel. Circulation 2004;110:227 Current Interpretive Data was last revised on 2018. HDL 49 >=40 mg/dL JEFRY ERAZO Comment: Interpretive Data Ages < or = 19 years Acceptable: >45 mg/dL Borderline low: 40-45 mg/dL Low: <40 mg/dL Ages > or = 20 years Desirable: >or= 60 mg/dL Low: <40 mg/dL Literature References: 1. Expert Panel on Integrated Guidelines for Cardiovascular Health and Risk Reduction in Children and Adolescents. Pediatrics 2011;128:S213 2. NCEP Expert Panel. Circulation 2004;110:227 Current Interpretive Data was last revised on 2018. LDL, calculated 65 <=129 mg/dL JEFRY ERAZO Comment: Interpretive Data Ages < or = 19 years Acceptable: <110 mg/dL Borderline high: 110-129 mg/dL High: >or= 130 mg/dL Ages > or = 20 years Optimal: <100 mg/dL Near optimal: 100-129 mg/dL Borderline high: 130-159 mg/dL High: >160 mg/dL Calculated using the Jimmie LDL-C estimating equation. This equation was implemented on 2024. Prior to this date LDL-C was estimated using the Friedewald equation. Literature References: 1. Expert Panel on Integrated Guidelines for Cardiovascular Health and Risk Reduction in Children and Adolescents. Pediatrics 2011;128:S213 2. NCEP Expert Panel. Circulation 2004;110:227 3. Jimmie Taveras et al. JOHAN Cardiol. 2020 December 26;5(5):540-548. doi: 10.1001/jamacardio.2020.0013 Current Interpretive Data was last revised on 2024. Non-HDL Cholesterol 87 mg/dL JEFRY Comment: Interpretive Data Ages < or = 19 years Acceptable: <120 mg/dL Borderline high: 120-144 mg/dL High: >145 mg/dL Ages > or = 20 years When triglycerides are >200 mg/dL, Non-HDL cholesterol is a secondary target of therapy with treatment goals that are 30 mg/dL greater than the LDL cholesterol target. Literature References: 1. Expert Panel on Integrated Guidelines for Cardiovascular Health and Risk Reduction in Children and Adolescents. Pediatrics 2011;128:S213 2. NCEP Expert Panel. Circulation 2004;110:227 Current Interpretive Data was last revised on 2018. Chol/HDL ratio 3 [facility] Blood 04/09/2025 2:56 PM CDT 04/09/2025 3:15 PM CDT Yanna Nettles [facility] LAB BLOOD ORDERABLES Final Res ult Performing Organization Address [facility] Co de Phone Number JEFRY [id number] [place] [address] * (ABNORMAL) Hemoglobin A1c (04/08/2025 3:48 AM CDT) Hgb A1C 7.9(H) 4.0 - 5.6 % Estimated Average Glucose 180 mg/dL JEFRY Comment: The ADA recommends reporting an estimated Average Glucose (eAG) with all Hemoglobin A1c results using the equation derived from a study of 507 normal and diabetic adults. Minority populations were underrepresented and children were not included. (Diabetes Care 31:2506-8427, 2008). The eAG is not equivalent to a fasting glucose. Blood 04/08/2025 3:48 AM CDT 04/08/2025 4:22 AM CDT Puma Mclain DO LAB BLOOD ORDERABLES Final Result Performing Organization Address [facility] de Phone Number JEFRY [id number] [place] [address] from Last 3 Months or Most Recently Relevant to Health Maintenance Insurance [facility] MEDICARE ADVANTAGE [facility] MEDIC[facility] Address: [address] [address] [place] [address] MEDICARE ADVANTAGE [facility] MEDICARE Address: [address] [address] [place] [address] Advance Directives For more information, please contact: [phone] Documents on File Type Date Recorded Patient Retail Advertising Executive Expl anation ADVANCE DIRECTIVE 04/11/2025 1:05 PM FIVE WISHES ADVANCE DIRECTIVE 04/11/2025 1:05 PM F[employer] W[employer]ES ADVANCE DIRECTIVE 04/11/2025 12:22 PM POLS T Advance Directives and Living Will 04/10/2025 12:14 PM Amanda Viera ADVANCE DIRECTIVE 04/10/2025 12:11 PM POLS T - Phys Order for PT Preferences * LIMITED - No CPR (Latest Code Status on File) Date Activated Date Inactivated Comments 04/08/2025 1:03 PM 04/10/2025 7:17 PM Question Answer Comments Provide aggressive medical m anagement before a full cardiopulmonary arrest occurs. Use antibiotics, IV Fluids, and medical treatment unless specifically selected below: No intubationNo cardioversion Discussed with the following attending physician: Puma Mclain DO * Full Code Date Activated Date Inactivated Comments 04/06/2025 6:00 AM 04/08/2025 1:03 PM * Full Code Date Activated Date Inactivated Comments 03/18/2025 2:58 PM 03/24/2025 9:11 PM * Full Code Date Activated Date Inactivated Comments 02/07/2025 8:09 AM 02/12/2025 8:40 PM * Full Code Date Activated Date Inactivated Comments 10/15/2023 5:47 AM 10/18/2023 4:07 PM Healthcare Agents on File Name Relationship Healthcare Agent [facility] p Communication Amanda [place] Health Care Agent [facility] Care Teams Implementation Consultant Relationship Specialty [place] [id number] [facility] [address] [place] [address] PCP - General 02/08/17 [place] [address] [facility] [address] [place] [address] Consulting Physician Nephrology 01/22/22
--- OUTSIDE RECORDS SUMMARY | 2025-07-20 18:51 | XMS_ITS | Patient Health Record ---
Author Organization [facility] Office Address [address] [place] [address] Support Name Relationship Address Phone MIKE SHAW Guarantor Unknown [phone] Reason For Referral No Information Medications Medication SIG (Take, Route, Frequency, Duration) Notes Start Date End Date Status Ergocalciferol 1.25 MG (50564 UT) 1 capsule Orally Once a week; Duration: 90 day(s) Active Losartan Potassium 25 MG 1 tablet Orally Once a day; Duration: 90 day(s) 01/25/2023 Active Bumetanide 1 MG TAKE 1 TABLET BY LUPIS TH EVERY DAY; Duration: 90 Active Calcitriol 0.25 MCG TAKE 1 CAPSULE BY [place] UTH EVERY DAY FOR 90 DAYS; Duration: 90 Active Social History Sex Assigned At : Social History Observation Description Sex Assigned At Male Problems Problem Type SNOMED Code ICD Code Onset Dates Problem Status W/U Status Risk Notes Problem Heart failure (46760414) Heart failure, unspecified (I50.9) Active confirmed Problem Atherosclerosis of renal artery (43870089) Atherosclerosis of renal artery (I70.1) Active confirmed Problem Essential hypertension (64781698) Essential hypertension (I10) Active confirmed Problem Chronic kidney disease stage 3B (disorder) (940256931) Chronic kidney disease, stage 3b (N18.32) Active confirmed Plan Of Treatment No Information
[2025-07-20 19:33] LABS: Hematocrit 29.9 % (42.0-52.0); Hemoglobin 9.6 g/dL (14.0-18.0); Immature Granulocyte Percent A 0.6 % (0-0.5); Lymphocytes Absolute Auto 0.86 K/mm3 (0.9-3.2); Mean Corpuscular HGB Conc 32.1 g/dl (32-36); Mean Corpuscular Hemoglobin 29.2 pg (26-34); Mean Corpuscular Volume 90.9 fl (80-100); Nucleated Red Blood Cells Absolute Auto 0.000 K/mm3 (0.0-0.012); Nucleated Red Blood Cells Perc 0.0 % (0.0-0.2); Platelet Count Result 211 k/mm3 (150-375); Red Blood Count 3.29 M/mm3 (4.6-6.20); White Blood Count 10.2 K/mm3 (4.5-10.0)
[2025-07-20] MEDS: ONDANSETRON INJ 4 MG/2 ML VIAL IV PUSH (19:41)
[2025-07-20] MEDS: MORPHINE SULFATE (*CRX) 4 MG/ML INJ 2 MG IV PUSH ×2 (19:41→22:37)
[2025-07-20 19:44] LABS: Alanine Aminotransferase 29 U/L (6-50); Albumin Level 3.6 g/dL (3.5-5.1); Alkaline Phosphatase 91 U/L (38-126); Anion Gap 8 mmol/L (4-12); Aspartate Amino Transferase 28 U/L (17-59); Bilirubin,Total 0.5 mg/dL (0.2-1.3); Blood Urea Nitrogen 76 mg/dL (9-20); Calcium 9.8 mg/dL (8.4-10.2); Carbon Dioxide 22 mmol/L (22-30); Chloride 105 mmol/L (98-107); Estimated CRCL calculation 32 ml/min; Estimated Glomerular Filt Rate 37; Glucose 195 mg/dL (65-110); Potassium 4.8 mmol/L (3.4-5.0); Sodium 135 mmol/L (137-145); Total Protein 6.4 g/dL (6.3-8.2)
[2025-07-20 19:45] LABS: INR 1.9; Prothrombin Time 21.3 Seconds (11.1-14.7)
[2025-07-20 19:46] LABS: Partial Thromboplastin Time 33.6 Seconds (22.3-36.8)
[2025-07-20 22:37] LABS: Hematocrit 28.2 % (42.0-52.0); Hemoglobin 9.0 g/dL (14.0-18.0)
[2025-07-21 00:14] VITALS: BP 107/53; PULSE 82; RESP 19; O2SAT 96
[2025-07-21 00:29] VITALS: BP 93/70; PULSE 75; RESP 18; O2SAT 97
[2025-07-21 00:46] VITALS: BP 111/64; PULSE 79; RESP 14; O2SAT 94
[2025-07-21] MEDS: fentaNYL CITRATE INJ (*CRX) 100 MCG/2 ML VIAL 25 MCG IV PUSH (01:19)
[2025-07-21 01:52] VITALS: BP 111/54; PULSE 87; RESP 12; O2SAT 97
== END 2025-07-21 01:22 | disposition short-term general hospital (02) ==
PROVIDERS: Emergency Provider Physician Assistant
DX: S30.0XXA Contusion of lower back and pelvis, initial encounter (principal); I48.91 Unspecified atrial fibrillation; N40.0 Benign prostatic hyperplasia without lower urinary tract symptoms; M47.816 Spondylosis without myelopathy or radiculopathy, lumbar region; Z79.01 Long term (current) use of anticoagulants; W01.0XXA Fall on same level from slipping, tripping and stumbling without subsequent striking against object, initial encounter
CPT/HCPCS: 36415; 72191; 80053; 85014; 85018; 85025; 85610; 85730; 86850; 86900; 86901; 96374; 96375; 96376; 99285; J2270; J2405; J3010; Q9967